=== PATIENT | female | born 1965 | race Caucasian/White ===

== ENCOUNTER 2018-03-13 11:56 | Emergency (ER) | payer SELFPAY ==
[~2018-03-13] VITALS: Ht 160 cm; Wt 58.6 kg
[2018-03-13 12:07] VITALS: Ht 160 cm; Wt 58.6 kg
[2018-03-13] MEDS ORDERED: ULTRAM50 MG PO (15:29)
[2018-03-13] MEDS ORDERED: CLEOCIN HCL150 MG PO (15:29)
[2018-03-13] MEDS ORDERED: NYSTATIN OINTME15 GM TOPICAL (15:29)
[2018-03-13 15:41] LABS: APPEARANCE CLEAR (CLEAR); BILIRUBIN NEGATIVE (NEGATIVE); COLOR YELLOW (YELLOW); GLUCOSE NEGATIVE (NEGATIVE); KETONE NEGATIVE (NEGATIVE); NITRITE NEGATIVE (NEGATIVE); PROTEIN NEGATIVE (NEGATIVE); UROBILINOGEN NORMAL (NORMAL)
[2018-03-13 16:25] VITALS: BP 129/74
== END 2018-03-13 16:32 | disposition home or self-care (01) ==
LOC: D.ER 11:56
PROVIDERS: Family Medicine
DX: L30.9 Dermatitis, unspecified (principal); R10.2 Pelvic and perineal pain; F17.200 Nicotine dependence, unspecified, uncomplicated